=== PATIENT | female | born 1965 | race Caucasian/White ===

== ENCOUNTER 2017-03-27 13:57 | Inpatient (IN) | payer OTHER ==
[~2017-03-27] VITALS: Ht 160 cm; Wt 90.7 kg
--- NOTE | ~2017-03-27 | EKG ---
[address] [place] [address] ELECTROCARDIOGRAM REPORT Name: DIEGO FENG Room #: 452-P ADM IN M.R.#: [id number] Admission: 03/27/17 Attend Phys: Zahc Duran MD Discharge: Date of : 61 Report #: [id number] THIS REPORT FOR: //name// [facility] ED Test Date: 2017-03-27 Test Time: 16:49:48 Pat Name: DIEGO FENG Department: Room: [facility] Gender: F Strip Cutter: Won Melvin : 1965 Requested By: Tiara Woodall Order Number: [id number] MD: Konrad García Measurements Intervals [place] Rate: 117 P: 66 DE: 115 QRS: 53 QRSD: 75 T: 54 QT: 287 QTc: 401 Interpretive Statements Sinus tachycardia Low voltage, precordial leads Compared to ECG 05/08/2016 23:38:23 No significant change was found Electronically Signed On 03-29-2017 7:56:19 CDT by Konrad García [email or web address] <ELECTRONICALLY SIGNED> By: Konrad García MD, [facility] 03/29/17 [id number] Konrad García MD, [facility] /EPI
--- NOTE | ~2017-03-27 | HC ---
[facility] [place] [address] CONSULTATION Name: DIEGO FENG Room #: 452-P [facility] IN M.R.#: [id number] Admission: 03/27/17 Attend Phys: Zach Duran MD Discharge: 04/02/17 Date of : 61 Report #: [id number] THIS REPORT FOR: //name// CC: Jony Duran REASON FOR CONSULTATION: I was asked to evaluate concerning fever and pneumonia. HISTORY OF PRESENT ILLNESS: The patient was a 51-year-old alf resident who has been noticing a productive cough for the last several days. She has had myalgias and arthralgias, mild abdominal pain and nausea. She resides at [facility]. She has underlying schizophrenia and mental retardation with seizure disorder. She has had pneumonia in the past. She also has diabetes. She had temperature up to 105 degrees. Here it has been 103 on presentation and now down to afebrile. She was placed on 2 liters of oxygen per nasal cannula. Given vancomycin, Zosyn and Levaquin. She is still trying to bring up sputum for culture, although she has had very loose, which she describes as green sputum. ALLERGIES: None known. MEDICATIONS: As noted on MAR, including her current antibiotics. PAST MEDICAL HISTORY: Diabetes, schizophrenia, bipolar disorder, seizure disorder, mental retardation, hyperlipidemia, recurrent urinary tract infections, anemia, urinary incontinence, hypertension, congestive heart failure, previous pneumonia, underlying COPD with baseline oxygen requiring 2 liters. FAMILY HISTORY: Noncontributory. SOCIAL HISTORY: She is a cigarette smoker, no significant alcohol use. REVIEW OF SYSTEMS: She describes no dysuria or frequency. She has had no diarrhea. No rashes or decubiti. PHYSICAL EXAMINATION: VITAL SIGNS: Currently, afebrile, hemodynamically stable on 2 liters. GENERAL: She was alert and cooperative, in no acute distress. She did have loose cough during my evaluation. HEENT: Unremarkable. She was obese. NECK: No adenopathy. No rashes or decubiti. LUNGS: Scattered coarse breath sounds posteriorly. HEART: Regular, without murmur. ABDOMEN: Soft, nontender, no hepatosplenomegaly or mass. GENITOURINARY: She was incontinent of urine. [address] [address] CONSULTATION Name: DIEGO FENG Room #: [address] [place] [address] [place] [facility].#: [id number] Admission: 03/27/17 Attend Phys: Zach Duran MD Discharge: 04/02/17 Date of : 61 Report #: [id number] EXTREMITIES: Unremarkable. LABORATORY STUDIES: Sodium 141, potassium 5, bicarbonate 26, creatinine 1.7, hemoglobin 8.1, white count 17.2. Yesterday she had 28% bands, platelet count was 390,000. MRSA screen was positive. Vancomycin trough was 21. Procalcitonin is 7.6. Urinalysis was positive for WBCs and bacteria with urine culture showing whtie sensitive E. coli. Blood cultures are negative to date. Chest x-ray shows bilateral patchy infiltrates. Abdominal x-ray revealed ileus. IMPRESSION: Healthcare-associated pneumonia with leukocytosis, fever, productive cough. She also has Escherichia coli, cystitis. No evidence of pyelonephritis on examination. She had no CVA tenderness. X-ray does show bilateral infiltrates that fit as most likely cause of her infection. Recommend continuing antibiotic coverage with vancomycin and Unasyn. We will check urine antigens, sputum culture. We will see how she does over the next 24-48 hours. May need speech therapy to assist. <ELECTRONICALLY SIGNED> By: Jh Rogers MD 04/02/17 1707 [id number] Jh Rogers MD /nt
[~2017-03-27 13:57] MED LIST: ACETAMINOPHEN325 M1 PO; ADVAIR 250-501 EACH INH; ADVAIR HFA 230M12 GM; ALBUTEROL; ALBUTEROL0.63 MG/3; ALBUTEROL2.5 MG/31 INH; AMLODIPINE BESYL5 MG PO; ANTACID500 MG PO; ATIVAN IM; ATIVAN1 MG PO; ATORVASTATIN CA40 MG PO; AUGMENTIN 875875 MG PO; AVELOX 400 MG400 MG PO; CALCIUM ACETAT667 M2; CELEXA20 MG PO; CELEXA40 MG PO; CIPRO250 M1 PO; CLARITIN10 MG PO; COLACE100 MG PO; COMBIVENT INH; CYMBALTA60 MG PO; DEPAKOTE500 MG PO; DESYREL50 MG PO; DIABETA 5MG TABL5 MG PO; DOXYCYCLINE 10100 M1; DOXYCYCLINE 10100 MG PO; DUONEB 2.5-0.5 M3 ML INH; FENOFIBRATE200 MG PO; FENOFIBRATE54 MG PO; FERRO-TIME325 MG PO; FISH OIL 1,001000 M2 PO; GEMFIBROZIL 60600 MG PO; GLIPIZIDE5 MG PO; GLUCOPHAGE1000 MG PO; GLUCOPHAGE500 MG; GLUCOSE4 GM PO; GLUCOTROL10 MG PO; GLUCOTROL5 MG PO; HALDOL; IRON325 PO; LANTUS SUBQ; LASIX 20 MG TAB20 MG PO; LEVAQUIN 250 M250 MG PO; LEVAQUIN 500 M500 M2 PO; LEVEMIR SUBQ; LEVOTHROID75 MCG PO; LEVOTHYROXIN0.125 M1 PO; LEVOTHYROXIN0.175 MG PO; LISINOPRIL5 MG PO; LOPERAMIDE 2 MG2 M1 PO; LORATIDINE 10 M10 M1 PO; LORAZEPAM 2MG TA2 M1 IM; LORAZEPAM 2MG2 MG/M1 IM; MOM PO; MUCINEX TA600 MG/TA2 PO; MUPIROCIN22 GM TOP; NAPROSYN500 MG PO; NEURONTIN800 MG PO; NEVANAC3 ML OPHTHALMIC; NORCO 5-325 TA1 EACH PO; NORVASC5 MG PO; NOVOLOG100 UNIT/1 SUBQ; NYSTATIN 100,0015 G1 TOP; NYSTATIN 1100000 U/M PO; OLANZAPINE15 MG PO; OMEGA-31000 M1; OMEPRAZOLE 20 M20 MG PO; OMEPRAZOLE20 M2 PO; OXYBUTYNIN PO; PATANOL5 ML OPHTHALMIC; PHENERGAN-CODE120 ML PO; PHOSLO667 MG PO; PIOGLITAZONE15 MG PO; PRED FORTE 1% EY5 M1 OPHTHALMIC; PREDNISOLON5 MG/5 ML; PREDNISONE 5 MG5 M1; PREDNISONE PO; PRINIVIL5 MG PO; PROVENTIL HFA6.7 G1 INH; Q-TUSSIN100 MG/5 M PO; RISPERDAL 3 MG T3 M1 PO; ROBITUSSIN100 MG/52 PO; ROBITUSSIN100 MG/53 PO; SILTUSSIN100 MG/5 M PO; SILVADENE20 GM TP; SIMVASTATIN40 MG PO; SPIRIVA INH; SYNTHROID137 MCG PO; TESSALON PERLE100 MG PO; TRIMETHOPRIM /P10 M1 OPHTHALMIC; TYLENOL325 MG PO; VENTOLIN HFA 1818 GM; VENTOLIN HFA INH8 GM IH; VENTOLIN HFA INH8 GM INH; VENTOLIN17 GM INH; VITAMIN A & D60 G1 TOP; VITAMIN A & D60 G1 TP; ZANTAC 150MG T150 M1 PO; ZOCOR 20 MG TAB20 M1 PO; ZPAK PO; ZYPREXA 10 MG T10 MG PO; [UNRECOGNIZED DRUG - OTHER] OPHTHALMIC
[2017-03-27 13:58] VITALS: BP 130/48
[2017-03-27 14:32] LABS: HEMOGLOBIN 10.5 gm/dL (12.0-15.0)
[2017-03-27 14:34] LABS: HEMATOCRIT 29.9 % (37.0-47.0); MCH 31.6 pg (26.0-34.0); MCHC 35.1 g/dL (28.0-37.0); PLATELET COUNT 457 thou/uL (150-400); RBC 3.33 mil/uL (4.20-5.00); RDW 14.4 % (10.5-14.5); WBC 11.5 thou/uL (4.0-11.0)
[2017-03-27] MEDS ORDERED: NOVOLOG100 UNIT/1 SUBQ (14:36)
[2017-03-27] MEDS ORDERED: LEVEMIR SUBQ (14:36)
[2017-03-27] MEDS ORDERED: RISPERDAL50 MG/2 ML IM (14:37)
[2017-03-27] MEDS ORDERED: LORAZEPAM 22 MG/1 ML IM (14:37)
[2017-03-27] MEDS ORDERED: ATIVAN0.5 MG PO (14:38)
[2017-03-27] MEDS ORDERED: HALDOL5 MG/1 ML IJ (14:39)
[2017-03-27] MEDS ORDERED: HALDOL 0.5 MG0.5 MG PO (14:40)
[2017-03-27 14:48] LABS: MANUAL DIFF YES
[2017-03-27 14:52] LABS: CALCIUM 8.6 mg/dL (8.5-10.1); CREATININE 1.7 mg/dL (0.6-1.0); POTASSIUM 5.2 mmol/L (3.5-5.1)
[2017-03-27 15:10] LABS: URINE BILIRUBIN NEGATIVE (Negative); URINE BLOOD 2+ (Negative); URINE COLOR YELLOW; URINE GLUCOSE-RANDOM* NEGATIVE (Negative); URINE KETONES NEGATIVE (Negative); URINE NITRITE POSITIVE (Negative); URINE PROTEIN (DIPSTICK) 2+ (Negative); URINE UROBILINOGEN 0.2 E.U./dl (0.2-1.0)
[2017-03-27 15:18] LABS: ABSOLUTE NEUTROPHILS 9.9 thou/uL (1.4-8.2); TOTAL CELL COUNT 100
[2017-03-27 15:19] LABS: ANISOCYTOSIS SLIGHT; MICROCYTES SLIGHT; POLYCHROMASIA SLIGHT; TOXIC GRANULATION SLIGHT
[2017-03-27 15:21] LABS: BACTERIA >30 Many /HPF (None Seen); CASTS None Seen /LPF (None Seen); CRYSTALS None Seen /LPF (None Seen); SQUAMOUS 4-10 Moderate /LPF (0-3); URINE RBC 3-10 Few /HPF (0-2); URINE WBC >25 Many /HPF (0-5)
[2017-03-27 15:29] LABS: ALBUMIN 2.3 g/dL (3.4-5.0); ALKALINE PHOSPHATASE 65 U/L (46-116); DIRECT BILIRUBIN < 0.1 mg/dL (<0.1-0.3); NT-PRO BRAIN NAT PEPTIDE 595 pg/mL (<300); SGOT 26 U/L (15-37); SGPT 15 U/L (30-65); TOTAL BILIRUBIN 0.2 mg/dL (<0.1-1.0)
[2017-03-27 17:14] VITALS: BP 105/57
[2017-03-27 17:33] VITALS: BP 120/93
[2017-03-27 19:15] VITALS: BP 131/54
[2017-03-27 23:05] VITALS: BP 127/55
[2017-03-28 03:51] VITALS: BP 119/51
[2017-03-28 06:27] LABS: HEMATOCRIT 24.3 % (37.0-47.0); MCH 30.9 pg (26.0-34.0); MCHC 33.2 g/dL (28.0-37.0); MCV 93.2 fL (80.0-100.0); RBC 2.61 mil/uL (4.20-5.00); RDW 14.3 % (10.5-14.5); WBC 19.4 thou/uL (4.0-11.0)
[2017-03-28 06:48] LABS: CALCIUM 7.5 mg/dL (8.5-10.1); CREATININE 2.1 mg/dL (0.6-1.0); TOTAL BILIRUBIN 0.3 mg/dL (<0.1-1.0); TOTAL PROTEIN 6.2 g/dL (6.4-8.2)
[2017-03-28 06:51] LABS: POTASSIUM 6.3 mmol/L (3.5-5.1)
[2017-03-28 06:57] LABS: HEMOGLOBIN 8.1 gm/dL (12.0-15.0)
[2017-03-28 09:54] VITALS: BP 110/64
[2017-03-28 11:39] VITALS: BP 112/42
[2017-03-28 17:31] VITALS: BP 111/49
[2017-03-28 19:59] VITALS: BP 133/70
[2017-03-29 04:17] VITALS: BP 135/57
[2017-03-29 08:12] VITALS: BP 143/60
[2017-03-29 08:15] LABS: HEMATOCRIT 24.5 % (37.0-47.0); HEMOGLOBIN 8.1 gm/dL (12.0-15.0); MCH 30.5 pg (26.0-34.0); MCV 92.5 fL (80.0-100.0); RBC 2.65 mil/uL (4.20-5.00); RDW 14.3 % (10.5-14.5); WBC 17.2 thou/uL (4.0-11.0)
[2017-03-29 08:20] LABS: CALCIUM 8.1 mg/dL (8.5-10.1); CREATININE 1.7 mg/dL (0.6-1.0)
[2017-03-29 11:38] VITALS: BP 123/57
[2017-03-29 15:25] VITALS: BP 122/61
[2017-03-29 20:03] VITALS: BP 141/62
[2017-03-30 04:26] VITALS: BP 143/52
[2017-03-30 06:31] LABS: HEMOGLOBIN 8.4 gm/dL (12.0-15.0); MCHC 33.7 g/dL (28.0-37.0); MCV 91.8 fL (80.0-100.0); RBC 2.72 mil/uL (4.20-5.00); RDW 14.6 % (10.5-14.5); WBC 10.7 thou/uL (4.0-11.0)
[2017-03-30 06:43] LABS: CREATININE 1.4 mg/dL (0.6-1.0); POTASSIUM 4.8 mmol/L (3.5-5.1)
[2017-03-30 07:24] VITALS: BP 152/80
[2017-03-30 11:43] VITALS: BP 158/87
[2017-03-30 15:55] VITALS: BP 145/70
[2017-03-30 19:43] VITALS: BP 121/53
[2017-03-31 04:12] VITALS: BP 144/65
[2017-03-31 06:29] LABS: HEMATOCRIT 24.7 % (37.0-47.0); HEMOGLOBIN 8.2 gm/dL (12.0-15.0); MCH 30.7 pg (26.0-34.0); MCHC 33.4 g/dL (28.0-37.0); MCV 91.8 fL (80.0-100.0); PLATELET COUNT 321 thou/uL (150-400); RBC 2.69 mil/uL (4.20-5.00); RDW 14.3 % (10.5-14.5); WBC 7.5 thou/uL (4.0-11.0)
[2017-03-31 06:31] LABS: MANUAL DIFF YES
[2017-03-31 06:43] LABS: ALBUMIN 1.9 g/dL (3.4-5.0); CALCIUM 7.7 mg/dL (8.5-10.1); CREATININE 1.3 mg/dL (0.6-1.0); POTASSIUM 5.1 mmol/L (3.5-5.1); TOTAL BILIRUBIN 0.1 mg/dL (<0.1-1.0); TOTAL PROTEIN 5.8 g/dL (6.4-8.2)
[2017-03-31 07:13] LABS: ABSOLUTE NEUTROPHILS 4.1 thou/uL (1.4-8.2); METAMYELOCYTES 1 %; PLATELET ESTIMATE NORMAL; TOTAL CELL COUNT 100
[2017-03-31 07:44] VITALS: BP 151/73
[2017-03-31 08:13] VITALS: BP 145/53
[2017-03-31 11:01] VITALS: BP 145/43
[2017-03-31 16:09] VITALS: BP 135/56
[2017-03-31 20:08] VITALS: BP 152/65
[2017-04-01 03:27] VITALS: BP 150/49
[2017-04-01 05:51] LABS: POTASSIUM 5.9 mmol/L (3.5-5.1)
[2017-04-01 06:54] LABS: HEMATOCRIT 25.7 % (37.0-47.0); MCH 31.8 pg (26.0-34.0); MCHC 34.9 g/dL (28.0-37.0); MCV 91.2 fL (80.0-100.0); RBC 2.82 mil/uL (4.20-5.00); RDW 13.9 % (10.5-14.5); WBC 7.4 thou/uL (4.0-11.0)
[2017-04-01 07:22] VITALS: BP 152/49
[2017-04-01 12:21] VITALS: BP 157/61
[2017-04-01 15:53] VITALS: BP 151/73
[2017-04-01 19:20] VITALS: BP 158/47
[2017-04-01 21:34] LABS: CALCIUM 7.7 mg/dL (8.5-10.1); CREATININE 1.2 mg/dL (0.6-1.0)
[2017-04-01 21:42] LABS: POTASSIUM 6.1 mmol/L (3.5-5.1)
[2017-04-02 04:00] VITALS: BP 153/49
[2017-04-02 05:32] VITALS: BP 151/75
[2017-04-02 06:32] LABS: HEMATOCRIT 29.2 % (37.0-47.0); HEMOGLOBIN 9.9 gm/dL (12.0-15.0); MCH 30.9 pg (26.0-34.0); MCHC 33.9 g/dL (28.0-37.0); RBC 3.21 mil/uL (4.20-5.00); WBC 7.2 thou/uL (4.0-11.0)
[2017-04-02 06:37] LABS: CALCIUM 8.1 mg/dL (8.5-10.1); CREATININE 1.2 mg/dL (0.6-1.0)
[2017-04-02 06:57] LABS: POTASSIUM 4.7 mmol/L (3.5-5.1)
[2017-04-02 07:43] VITALS: BP 136/72
[2017-04-02] MEDS ORDERED: AUGMENTIN 875875 MG PO (08:41)
[2017-04-02 11:56] VITALS: BP 137/85
== END 2017-04-02 14:55 | DRG 871 ==
LOC: ER 13:57 → 4W 15:35 → EROBS 15:35 → 4W 16:44
PROVIDERS: Emergency Medicine; Internal Medicine
DX: A41.9 Sepsis, unspecified organism (principal); J13 Pneumonia due to Streptococcus pneumoniae; I13.0 Hypertensive heart and chronic kidney disease with heart failure and stage 1 through stage 4 chronic kidney disease, or unspecified chronic kidney disease; N17.9 Acute kidney failure, unspecified; N30.90 Cystitis, unspecified without hematuria; F20.9 Schizophrenia, unspecified; F31.9 Bipolar disorder, unspecified; E78.5 Hyperlipidemia, unspecified; G40.909 Epilepsy, unspecified, not intractable, without status epilepticus; I50.9 Heart failure, unspecified; J44.9 Chronic obstructive pulmonary disease, unspecified; E87.5 Hyperkalemia; F79 Unspecified intellectual disabilities; F17.210 Nicotine dependence, cigarettes, uncomplicated; Y95 Nosocomial condition; B96.20 Unspecified Escherichia coli [E. coli] as the cause of diseases classified elsewhere; N18.9 Chronic kidney disease, unspecified; R62.50 Unspecified lack of expected normal physiological development in childhood; E11.649 Type 2 diabetes mellitus with hypoglycemia without coma; E11.22 Type 2 diabetes mellitus with diabetic chronic kidney disease; Z79.4 Long term (current) use of insulin; Z79.899 Other long term (current) drug therapy
CPT/HCPCS: 10045; 27001